=== PATIENT | female | born 1970 | race Caucasian/White ===

== ENCOUNTER 2024-08-07 01:38 | Emergency (ER) | payer SELFPAY ==
[~2024-08-07] VITALS: Ht 162.6 cm; Wt 90.3 kg
[2024-08-07] MEDS ORDERED: MAALOX MAXIMUM355 ML PO (02:16)
[2024-08-07] MEDS ORDERED: ONDANSETRON ODT4 MG PO (02:16)
[2024-08-07] MEDS ORDERED: FAMOTIDINE20 MG PO (02:16)
[2024-08-07] MEDS ORDERED: CHLORDIAZEPOXID25 MG PO (02:16)
[2024-08-07] MEDS: ONDANSETRON HCL INJ 2MG/ML 2ML 2 MG/ML VIAL IV ONE (03:35)
[2024-08-07] MEDS: FAMOTIDINE 20 MG/2 ML VIAL IV ONE (03:35)
[2024-08-07] MEDS: LORAZEPAM 0.5 MG TAB PO ONE (03:36)
[2024-08-07] MEDS: LORAZEPAM INJ 2 MG/ML VIAL IV ONE (03:36)
[2024-08-07] MEDS: SODIUM CHLORIDE 0.9% 1000ML 1,000 ML IV STA (03:37)
[2024-08-07 04:36] VITALS: PULSE 68; RESP 14; TEMP 98
[2024-08-07 05:14] VITALS: BP 130/68; PULSE 68; RESP 14; TEMP 98; O2SAT 98
== END 2024-08-07 05:17 | disposition home or self-care (01) ==
LOC: FSED 01:41
DX: R00.2 Palpitations (principal); R10.13 Epigastric pain; K70.30 Alcoholic cirrhosis of liver without ascites; K29.20 Alcoholic gastritis without bleeding; F10.139 Alcohol abuse with withdrawal, unspecified; I10 Essential (primary) hypertension; E66.9 Obesity, unspecified; R94.31 Abnormal electrocardiogram [ECG] [EKG]
CPT/HCPCS: 80053; 81003; 82553; 84484; 85025; 93005; 99284; J2060; J2405; J7030